=== PATIENT | male | born 1995 | race Asian ===

== ENCOUNTER 2016-10-05 02:03 | Emergency (ER) | payer OTHER, MEDICAID ==
[2016-10-05] MEDS ORDERED: IBUPROFEN 600 MG TABLET PO STA (02:23)
[2016-10-05] MEDS ORDERED: IBUPROFEN 600 MG TABLET PO ONE (02:26)
== END 2016-10-05 03:28 | disposition home or self-care (01) ==
DX: S90.112A Contusion of left great toe without damage to nail, initial encounter (principal); W21.09XA Struck by other hit or thrown ball, initial encounter; Y93.54 Activity, bowling; Y92.39 Other specified sports and athletic area as the place of occurrence of the external cause; Y99.8 Other external cause status
CPT/HCPCS: 73620; 99282; 99283; A9270